=== PATIENT | male | born 1975 | race Caucasian/White ===

== ENCOUNTER 2021-04-12 18:03 | Emergency (ER) | payer MEDICAID, OTHER ==
[~2021-04-12] VITALS: Ht 167.6 cm; Wt 65.8 kg
[2021-04-12 18:16] VITALS: BP 141/91
== END 2021-04-12 23:26 | disposition left against medical advice (07) ==
LOC: ER 18:05
DX: R06.6 Hiccough (principal); F41.9 Anxiety disorder, unspecified; Z53.21 Procedure and treatment not carried out due to patient leaving prior to being seen by health care provider